=== PATIENT | female | born 1935 | race Caucasian/White ===

== ENCOUNTER 2020-03-07 12:44 | Emergency (ER) | payer MEDICARE, SELFPAY ==
--- NOTE | ~2020-03-07 | CT_ITS ---
EXAMINATION: CT brain wo con DATE: 03/07/2020 14:37 INDICATION: Syncope TECHNIQUE: Computed tomography (CT) of the head was performed without intravenous contrast. Sagittal and coronal reconstructions were performed. The mA was adjusted according to patient size. Iterative reconstruction technique was employed. The dose-length product was 605.33 mGy-cm. COMPARISON: head CT dated 05/02/2019 FINDINGS: No acute intracranial hemorrhage, acute infarction or abnormal extra axial fluid collection. There is mild scattered white matter hypoattenuation consistent with chronic small vessel ischemic disease. S ymmetric prominence of the sulci and subarachnoid spaces overlying the convexities consistent with mo derate age-appropriate diffuse cerebral volume loss. Ventricles are normal and symmetric. No mass/ma ss effect. The mastoids are hypopneumatized. The orbits are normal. Mild mucosal thickening in the ri ght sphenoid sinus. IMPRESSION: 1. No acute intracranial process. 2. Stable appearance of chronic age-related findings including moderate diffuse volume loss and mild scattered white matter hypoattenuation consistent with chronic small vessel ischemic disease. Reviewed, dictated and finalized at location A. IMPRESSION: 1. No acute intracranial process. 2. Stable appearance of chronic age-related findings including moderate diffuse volume loss and mild scattered white matter hypoattenuation consistent with ch ronic small vessel ischemic disease.
--- NOTE | ~2020-03-07 | XR_ITS ---
EXAMINATION: XR chest 2V DATE: 03/07/2020 13:23 INDICATION: Syncope TECHNIQUE: frontal and lateral views of the chest were obtained. COMPARISON: Chest radiograph dated 06/20/2019 FINDINGS: Right internal jugular central venous port catheter with distal tip at the midsuperior vena cava. Jeramie gs are hyperexpanded with increased lucency and architectural distortion in the upper lung zones cons istent with history of chronic obstructive pulmonary disease. There are several small scattered bilat eral calcified pulmonary nodules as well as calcified right paratracheal lymph nodes consistent with old granulomatous disease. Persistent mild linear and streaky opacities in the bilateral lower lung z ones consistent with atelectasis/scarring. No pleural effusion or pneumothorax. The cardiomediastinal silhouette is normal. Atherosclerotic aorta. Moderate thoracic spondylosis. IMPRESSION: 1. Hyperexpanded lungs consistent with COPD. 2. Unchanged mild atelectasis/scarring at the bilateral lower lung zones. Reviewed, dictated and finalized at location A.
--- NOTE | ~2020-03-07 | CT_ITS ---
EXAMINATION: CT abdomen pelvis wo con DATE: 03/07/2020 14:36 INDICATION: Lower abdominal pain TECHNIQUE: Computed tomography (CT) of the abdomen and pelvis was performed without intravenous contr ast. Automated exposure control and iterative reconstruction technique were employed. Exam dose: 193 .28 mGy-cm total exam DLP. COMPARISON: 02/01/2019 CT abdomen pelvis FINDINGS: There is an irregular approximately 7.5 x 11 mm mass in the posterior right lower lobe; cem anjana or metastatic lung cancer is likely. Consider PET/CT scan. Right lower lobe calcified pulmonary granulomas. Fat-containing foramen of Bochdalek hernia is noted bilaterally. Normal heart size. No pericardial or pleural effusion. Status post cholecystectomy. No intrahepatic or extrahepatic bile duct dilatation. Splenic size is no rmal. No pancreatic mass lesion or calcification or ductal dilatation. There is extensive calcification of the abdominal aorta, calcification of the right renal artery, eugenio cification at the origins of the celiac and superior mesenteric arteries, calcification of the iliac arteries. No abdominal aortic aneurysm is present. No intraperitoneal or retroperitoneal or pelvic ma ss lesion or adenopathy or ascites is noted. The urinary bladder is unremarkable. Status post hystere ctomy. There is a prominent of fecal material in the rectum and colon. No bowel obstruction, bowel wall thic kening, pneumatosis or intraperitoneal free air. There is diverticulosis of the colon; no CT evidence of diverticulitis. 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 No suspicious osteolytic or osteoblastic lesions are noted. IMPRESSION: Irregular approximately 7.5 mm x 11 mm soft tissue mass in right lower lobe; primary or m etastatic lung cancer is likely. Consider PET/CT imaging Status post cholecystectomy Status post hysterectomy Diverticulosis of the colon Jake Pacheco telephoned the report including the right lower lobe lung mass consistent with primary or me tastatic lung cancer to emergency room physician Dr. Tariq on 03/07/2020 at 1500 hours. Reviewed, dictated and finalized at Location [facility]. Reviewed, dictated and finalized at location B. IMPRESSION: Irregular approximately 7.5 mm x 11 mm soft tissue mass in right lo wer lobe; primary or metastatic lung cancer is likely. Consider PET/CT imaging Status post cholecystectomy Status post hysterectomy Diverticulosis of the colon Jake Pacheco telephoned the report including the right lower lobe lung mass consist ent with primary or metastatic lung cancer to emergency room physician Dr. Tariq on 03/07/2020 at 1500 hours.
[2020-03-07 12:55] VITALS: PULSE 75; RESP 18; TEMP 36.4; O2SAT 100
--- NOTE | 2020-03-07 12:57 | ECG_ITS ---
Measurements Intervals [place] Rate: 72 P: 66 IN: 171 QRS: 71 QRSD: 127 T: 49 QT: 404 QTc: 445 Interpretive Statements SINUS RHYTHM RIGHT BUNDLE BRANCH BLOCK BASELINE ARTIFACT- I, II, III, AVR, AVL, AVF ABNORMAL ECG Electronically Signed On 03-07-2020 13:05:19 CDT by Celso Martinez D.O.
[2020-03-07 13:38] VITALS: BP 132/72; PULSE 68; RESP 18; O2SAT 98
[2020-03-07 13:45] LABS: Basophils Percent Auto 0.3 % (0.2-1.2); Eosinophils Absolute Auto 0.1 K/mm3 (0-0.3); Hemoglobin 12.5 g/dL (12.0-15.0); Immature Granulocyte Absolute 0.01 K/mm3 (0.00-0.031); Immature Granulocyte Percent A 0.2 % (0-0.5); Lymphocytes Percent Auto 24.2 % (18.3-44.2); Mean Corpuscular HGB Conc 32.9 g/dl (32-36); Mean Corpuscular Hemoglobin 30.4 pg (26-34); Mean Corpuscular Volume 92.5 fl (80-100); Mean Platelet Volume 9.6 fl (7.4-10.4); Monocytes Absolute Auto 0.4 K/mm3 (0.1-0.6); Monocytes Percent Auto 6.6 % (2.6-8.5); Neutrophils Absolute Auto 4.2 K/mm3 (1.3-6.7); Neutrophils Percent Auto 67.7 % (45.5-73.1); Platelet Count Result 198 k/mm3 (150-375); Red Blood Count 4.11 M/mm3 (4.2-5.4); White Blood Count 6.2 K/mm3 (4.5-10.0)
[2020-03-07 13:58] LABS: Anion Gap 9.9 mmol/L (7-16); Blood Urea Nitrogen 25 mg/dL (7-17); Calcium 9.1 mg/dL (8.4-10.2); Carbon Dioxide 30 mmol/L (22-30); Chloride 102 mmol/L (98-107); Estimated CRCL calculation 36 ml/min; Estimated Glomerular Filt Rate > 60; Glucose 96 mg/dL (65-105); Potassium 3.9 mmol/L (3.4-5.0); Sodium 138 mmol/L (137-145)
--- NOTE | 2020-03-07 14:17 | ED.GENADULT ---
HPI - General Adult General Chief complaint: Unspecified Stated complaint: pain r/t cancer Time Seen by Provider: 03/07/20 13:44 Source: patient and family History of Present Illness HPI narrative: Patient is a 84 y/o female complaining of having dizziness and passing out this morning about 11:00 AM. Daughter states that patient's other daughter witnessed patient passing out and this lasted less than 1 minute. She was getting some coffee and sitting down when this happened. She was sitting and did not fall. There is no alleviating or exacerbating factor. She also had some intermittent abdominal pain, but abdominal pain has resolved. Related Data Home Medications Medication Instructions Recorded Confirmed aspirin 81 mg tablet,delayed 81 mg PO DAILY 09/15/19 release docusate sodium 100 mg capsule 100 mg PO DAILY 09/15/19 levetiracetam 750 mg tablet 750 mg PO Q12H 09/15/19 Allergies Allergy/AdvReac Type Severity Reaction Status Date / Time metoprolol Allergy Intermediate RASH & Verified 03/07/20 13:09 SWELLING Iodinated Contrast Media Allergy Unknown Anaphylactic Verified 03/07/20 13:09 Shock Penicillins Allergy Unknown Rash Verified 03/07/20 13:09 prednisone Allergy Unknown Unknown Verified 03/07/20 13:09 simvastatin Allergy Unknown Rash Verified 03/07/20 13:09 SHELLFISH Allergy Mild Anaphylactic Uncoded 03/07/20 13:09 Shock Contrast Media AdvReac Severe Anaphylactic Uncoded 03/07/20 13:09 Shock Review of Systems Constitutional: Constitutional: Denies chills, Denies fever(s), Denies headache(s) and Denies weakness Eyes: Eyes: Denies blurry vision ENT: Denies headache(s) and Denies neck pain Cardiovascular: Cardiovascular: Denies chest pain and Denies dyspnea Respiratory: Respiratory: Denies cough and Denies dyspnea Gastrointestinal: Gastrointestinal: Reports abdominal pain, Denies diarrhea, Denies nausea and Denies vomiting Genitourinary: Genitourinary: Denies hematuria and Denies dysuria Musculoskeletal: Musculoskeletal: Denies back pain and Denies neck pain Neurologic: Reports syncope, Denies headache(s) and Denies weakness [facility] Social History Social History Smoking status: Former smoker Smoking end date: 08/03/1964 Alcohol intake: never Substance use: never Substance use type: does not use Exam Const: General: no acute distress and well developed Orientation/consciousness: oriented to person, oriented to place, oriented to time and patient oriented x3 HENMT: Head: normocephalic Ears: external ears normal General nose exam: Normal external nose present Eyes: General: appearance normal, both eyes and all related structures Conjunctivae: conjunctivae normal Neck: Neck: normal visual inspection and full ROM Chest: Chest palpation & inspection: normal inspection of the chest and no tenderness Resp: Effort & Inspection: normal respiratory effort Auscultation: clear to auscultation bilaterally Cardio: Rate: regular rate Rhythm: regular rhythm GI: GI Palp: No abdominal tenderness and Yes Soft to palpation Skin: General skin exam: normal color and turgor normal Neuro: General: oriented to person, oriented to place, oriented to time and patient oriented x3 Cranial nerves: Yes CN's II-XII intact bilaterally Cognition (Neuro): normal cognition Speech: normal speech Motor exam (neuro): 5/5 motor strength present throughout Sensory Exam: normal sensation Coordination: [id number] test normal and [id number] test normal Extrem: General: normal to inspection, full ROM and no pedal edema Psych: Appearance: grossly normal Mental Status: mental status grossly normal Affect: normal affect Course Reevaluation(s) Reevaluation #1: Rechecked. Patient feels well. She has no complaint at this time. Informed patient and family about CT finding of lung mass, which may be malignant and certainly needs further evaluatio
[2020-03-07 14:45] LABS: Troponin I < 0.012 ng/mL (0.000-0.034)
[2020-03-07 15:01] VITALS: BP 130/39; PULSE 61; RESP 18; O2SAT 100
[2020-03-07 16:12] VITALS: BP 132/88; PULSE 70; RESP 18; O2SAT 98
== END 2020-03-07 16:13 | disposition home or self-care (01) ==
PROVIDERS: General Practice; Emergency Provider Emergency Medicine; PCP Family Medicine
DX: R55 Syncope and collapse (principal); I45.10 Unspecified right bundle-branch block
CPT/HCPCS: 36415; 70450; 71046; 74176; 80048; 84484; 85025; 93005; 99284

== ENCOUNTER 2020-05-31 14:09 | Emergency (ER) | payer MEDICARE, SELFPAY ==
[2020-05-31] VITALS (9 sets, daily range): BP systolic 105–141; BP diastolic 41–50; PULSE 60–73; RESP 12–22; TEMP 36.8; O2SAT 97–100
--- NOTE | ~2020-05-31 | CT_ITS ---
EXAMINATION: CT abdomen pelvis wo con DATE: 05/31/2020 17:39 INDICATION: Abdominal pain TECHNIQUE: Computed tomography (CT) of the abdomen and pelvis was performed without intravenous contr ast. The dose-length product was 221.01 mGy-cm. Automated exposure control and iterative reconstructi on technique were employed. COMPARISON: CT dated 03/07/2020 FINDINGS: There is a lobulated 1.4 cm mass right lower lobe which has increased in size compared with prior examination, consistent with bronchogenic carcinoma until proven otherwise. Heart size normal. No significant pleural or pericardial effusion. Status post cholecystectomy. The liver, spleen, pancreas, adrenal glands are unremarkable. There is nonobstructing right nephrolit hiasis. There is 1.3 cm exophytic left renal cyst. There is atherosclerosis. There is abnormal thicke keshawn of the sigmoid colon and rectum, consistent with colitis, likely infectious. Nonobstructive eugenio l gas pattern. There is mild surrounding inflammatory change adjacent to the sigmoid colon. No osteol ytic or osteoblastic lesions. No acute osseous abnormality. IMPRESSION: 1. Enlarging 14 mm right lower lobe nodule, consistent with bronchogenic carcinoma until proven other rushing. 2: Interval development of thickening of the sigmoid colon and rectum, consistent with colitis, most likely infectious. Consider C. difficile. Reviewed, dictated and finalized at location A. IMPRESSION: 1. Enlarging 14 mm right lower lobe nodule, consistent with bronchogenic carcin adam until proven otherwise. 2: Interval development of thickening of the sigmoid colon and rectum, consiste nt with colitis, most likely infectious. Consider C. difficile.
--- NOTE | 2020-05-31 14:14 | ECG_ITS ---
Measurements Intervals [place] Rate: 57 P: -13 DC: 194 QRS: -20 QRSD: 137 T: -9 QT: 437 QTc: 427 Interpretive Statements SINUS BRADYCARDIA RIGHT BUNDLE BRANCH BLOCK BASELINE WANDER- I, III, AVR, AVL ABNORMAL ECG Electronically Signed On 05-31-2020 19:29:25 CDT by Celso Martinez D.O.
[2020-05-31 15:37] LABS: Basophils Percent Auto 0.4 % (0.2-1.2); Eosinophils Absolute Auto 0.1 K/mm3 (0-0.3); Eosinophils Percent Auto 1.5 % (0-4.4); Hematocrit 41.5 % (37.0-47.0); Hemoglobin 13.7 g/dL (12.0-15.0); Immature Granulocyte Absolute 0.02 K/mm3 (0.00-0.031); Immature Granulocyte Percent A 0.2 % (0-0.5); Lymphocytes Absolute Auto 2.76 K/mm3 (0.9-3.2); Lymphocytes Percent Auto 30.3 % (18.3-44.2); Mean Corpuscular Hemoglobin 31.1 pg (26-34); Mean Corpuscular Volume 94.3 fl (80-100); Mean Platelet Volume 10.2 fl (7.4-10.4); Monocytes Absolute Auto 0.5 K/mm3 (0.1-0.6); Monocytes Percent Auto 5.3 % (2.6-8.5); Neutrophils Absolute Auto 5.7 K/mm3 (1.3-6.7); Neutrophils Percent Auto 62.3 % (45.5-73.1); Platelet Count Result 215 k/mm3 (150-375); Red Cell Distribution Width 12.2 % (11.5-14.5); White Blood Count 9.1 K/mm3 (4.5-10.0)
[2020-05-31 15:42] LABS: Alanine Aminotransferase 18 U/L (4-35); Albumin Level 4.4 g/dL (3.5-5.1); Alkaline Phosphatase 88 U/L (38-126); Anion Gap 10 mmol/L (8-16); Aspartate Amino Transferase 32 U/L (14-36); Bilirubin,Total 0.5 mg/dL (0.2-1.3); Blood Urea Nitrogen 20 mg/dL (7-17); Calcium 9.7 mg/dL (8.4-10.2); Carbon Dioxide 30 mmol/L (22-30); Chloride 100 mmol/L (98-107); Estimated CRCL calculation 30 ml/min; Estimated Glomerular Filt Rate 53; Glucose 109 mg/dL (65-105); Lipase 115 U/L (23-300); Potassium 4.1 mmol/L (3.4-5.0); Sodium 140 mmol/L (137-145)
--- NOTE | 2020-05-31 15:47 | ED.GENADULT ---
HPI - General Adult General Chief complaint: Seizure Stated complaint: TREMORS Time Seen by Provider: 05/31/20 14:32 Source: patient and family Limitations: physical limitation and other ([id number]) History of Present Illness HPI narrative: 84-year-old female History of ovarian cancer high blood pressure seizures and lung nodule that is being followed Had an episode in the bathroom at home today Sounds more like a presyncopal event than a seizure She had complained of some lower abdominal discomfort, she was urinating, and she possibly passed out trying to get up off the toilet but was assisted to the ground by family member There was some brief shaking which might have been tremor or myoclonus Her mental status rapidly returned to normal Currently she is effectively at baseline except for complaining of some lower abdominal pain which is less than it was prior to her using the bathroom There was no injury sustained Onset (ago): hour(s) Related Data Home Medications Medication Instructions Recorded Confirmed aspirin 81 mg tablet,delayed 81 mg PO DAILY 09/15/19 release docusate sodium 100 mg capsule 100 mg PO DAILY 09/15/19 levetiracetam 750 mg tablet 750 mg PO Q12H 09/15/19 Allergies Allergy/AdvReac Type Severity Reaction Status Date / Time metoprolol Allergy Intermediate RASH & Verified 05/31/20 15:58 SWELLING Iodinated Contrast Media Allergy Unknown Anaphylactic Verified 05/31/20 15:58 Shock Penicillins Allergy Unknown Rash Verified 05/31/20 15:58 prednisone Allergy Unknown Unknown Verified 05/31/20 15:58 simvastatin Allergy Unknown Rash Verified 05/31/20 15:58 SHELLFISH Allergy Mild Anaphylactic Uncoded 05/31/20 15:58 Shock Contrast Media AdvReac Severe Anaphylactic Uncoded 05/31/20 15:58 Shock Review of Systems Review of Systems: All systems reviewed & are unremarkable except as noted in HPI and below Constitutional: Constitutional: Denies chills, Reports fatigue, Denies fever(s), Denies headache(s) and Reports weakness Eyes: Eyes: Denies change in vision and Denies other visual disturbances ENT: Denies headache(s), Denies epistaxis, Denies nasal congestion and Denies sore throat Comments: Hearing problems Cardiovascular: Cardiovascular: Denies chest pain, Denies leg edema, Denies palpitations and Denies dyspnea Respiratory: Respiratory: Denies cough, Denies dyspnea and Denies wheezing Gastrointestinal: Gastrointestinal: Reports abdominal pain, Denies diarrhea, Denies nausea and Denies vomiting Genitourinary: Genitourinary: Denies hematuria, Denies urinary frequency and Denies dysuria Musculoskeletal: Musculoskeletal: Denies deformity, Denies arthralgias, Denies joint swelling, Denies muscle weakness and Denies numbness Integumentary/Breasts: Skin/Breast: Denies rash, Denies unusual bruising and Denies wounds Neurologic: Denies Abnormal speech present, Reports syncope, Denies headache(s), Denies focal weakness, Denies numbness and Denies weakness Psychiatric: Psychiatric: Reports no additional psychiatric complaints Endocrine: Endocrine: Denies fatigue and Denies palpitations Hematologic/Lymphatic: Hematologic/Lymphatic: Denies easy bleeding and Denies easy bruising Allergic/Immunologic: Allergic/Immunologic: Denies wheezing [facility] Social History Social History Smoking status: Former smoker Smoking end date: 08/03/1964 Alcohol intake: never Substance use: never Substance use type: does not use Exam Const: General: no acute distress, well developed and awake Nutritional Appearance: thin Orientation/consciousness: patient oriented x3 (alert) Other: Elderly, frail HENMT: Head: normocephalic and atraumatic Ears: external ears normal General nose exam: No nasal discharge present and no epistaxis Face and sinus: face symmetric Mouth: Yes moist mucous membranes Other: Atraumatic Eyes: Conjunctivae: conj
[2020-05-31 16:12] LABS: Add Urine Microscopic? YES; Appearance Urine Clear (Clear); Bacteria Urine Trace /hpf; Bilirubin Urine Negative (Negative); Blood Urine 1+ (Negative); Color Urine Yellow (Yellow); Glucose Urine UA Negative (Negative); Ketones Urine Negative (Negative); Leukocyte Esterase Ur Negative LEU/UL (Negative); Mucus Urine Rare /lpf; Nitrate Urine Negative (Negative); Protein Urine Negative (Negative); Specific Grav Ur 1.009 (1.001-1.035); Urobilinogen Urine Negative mg/dL (<2.0); WBC Urine 0-3 /hpf
[2020-05-31] MEDS: LACTATED RINGERS 1,000 ML 999 ML IV CONT (16:45)
[2020-05-31] MEDS: levETIRAcetam 1000MG/NACL100ML 1,000 MG/100 ML BAG 400 MG IVPB (16:47)
== END 2020-05-31 18:50 | disposition home or self-care (01) ==
PROVIDERS: Emergency Provider Emergency Medicine; PCP Family Medicine
DX: K52.9 Noninfective gastroenteritis and colitis, unspecified (principal); R91.1 Solitary pulmonary nodule; G40.909 Epilepsy, unspecified, not intractable, without status epilepticus; I10 Essential (primary) hypertension
CPT/HCPCS: 36415; 74176; 80053; 81001; 83690; 85025; 93005; 96361; 96365; 99284; J1953; J7120

== ENCOUNTER 2020-11-21 09:42 | Emergency (ER) | payer MEDICARE, SELFPAY ==
--- NOTE | ~2020-11-21 | CT_ITS ---
EXAMINATION: CT brain wo con DATE: 11/21/2020 11:36 INDICATION: Confusion. TECHNIQUE: Computed tomography (CT) of the head was performed without intravenous contrast. The mA wa s adjusted according to patient size. Iterative reconstruction technique was employed. The dose-lengt h product was 605.33 mGy-cm. COMPARISON: Head CT 03/07/2020 FINDINGS: There is no intracranial hemorrhage, acute infarction, or abnormal intracranial mass lesion . There are scattered areas of low attenuation in the cerebral white matter, which is within normal l imits for the patient's age. The ventricles are normal in size. There is mild mucosal thickening in t he ethmoid sinuses. The orbits are normal. The mastoid air cells are hypoplastic. IMPRESSION: 1. Normal aging brain. Reviewed, dictated and finalized at location B. IMPRESSION: 1. Normal aging brain.
--- NOTE | 2020-11-21 09:47 | ECG_ITS ---
Measurements Intervals [place] Rate: 93 P: 70 [place]: 218 QRS: 86 QRSD: 137 T: 44 QT: 360 QTc: 450 Interpretive Statements SINUS RHYTHM WITH FIRST DEGREE AV BLOCK RIGHT BUNDLE BRANCH BLOCK BASELINE ARTIFACT- I, II, III, AVR, AVL, AVF, V1-V6 ABNORMAL ECG Electronically Signed On 11-21-2020 10:00:46 CDT by Celso Martinez D.O.
[2020-11-21 09:48] VITALS: BP 160/71; PULSE 92; RESP 15; TEMP 36.9; O2SAT 99
[2020-11-21 10:06] LABS: Basophils Percent Auto 0.6 % (0.2-1.2); Eosinophils Absolute Auto 0.1 K/mm3 (0-0.3); Eosinophils Percent Auto 2.4 % (0-4.4); Hematocrit 40.8 % (37.0-47.0); Hemoglobin 13.4 g/dL (12.0-15.0); Immature Granulocyte Absolute 0.01 K/mm3 (0.00-0.031); Immature Granulocyte Percent A 0.2 % (0-0.5); Lymphocytes Absolute Auto 1.12 K/mm3 (0.9-3.2); Lymphocytes Percent Auto 22.5 % (18.3-44.2); Mean Corpuscular HGB Conc 32.8 g/dl (32-36); Mean Corpuscular Volume 94.4 fl (80-100); Mean Platelet Volume 9.1 fl (7.4-10.4); Monocytes Absolute Auto 0.3 K/mm3 (0.1-0.6); Monocytes Percent Auto 6.4 % (2.6-8.5); Neutrophils Absolute Auto 3.4 K/mm3 (1.3-6.7); Neutrophils Percent Auto 67.9 % (45.5-73.1); Platelet Count Result 224 k/mm3 (150-375); Red Blood Count 4.32 M/mm3 (4.2-5.4); Red Cell Distribution Width 12.3 % (11.5-14.5)
[2020-11-21 10:16] LABS: Alanine Aminotransferase 13 U/L (4-35); Alkaline Phosphatase 95 U/L (38-126); Anion Gap 8 mmol/L (8-16); Aspartate Amino Transferase 25 U/L (14-36); Bilirubin,Total 0.2 mg/dL (0.2-1.3); Blood Urea Nitrogen 23 mg/dL (7-17); Carbon Dioxide 28 mmol/L (22-30); Chloride 102 mmol/L (98-107); Estimated CRCL calculation 39 ml/min; Estimated Glomerular Filt Rate > 60; Glucose 107 mg/dL (65-105); Potassium 3.4 mmol/L (3.4-5.0); Sodium 138 mmol/L (137-145)
[2020-11-21 10:21] LABS: Add Urine Microscopic? YES; Appearance Urine Clear (Clear); Bilirubin Urine Negative (Negative); Blood Urine 1+ (Negative); Color Urine Straw (Yellow); Glucose Urine UA Negative (Negative); Ketones Urine Negative (Negative); Leukocyte Esterase Ur Negative LEU/UL (Negative); Mucus Urine Rare /lpf; Nitrate Urine Negative (Negative); Protein Urine Negative (Negative); RBC Urine 0-2 /hpf (0-2); Specific Grav Ur 1.009 (1.001-1.035); Urobilinogen Urine Negative mg/dL (<2.0); WBC Urine 0-3 /hpf
[2020-11-21 10:40] LABS: Troponin I < 0.012 ng/mL (0.000-0.034)
[2020-11-21 10:56] VITALS: BP 129/47; PULSE 76; RESP 18; O2SAT 97
[2020-11-21 10:58] LABS: Thyroid Stimulating Hormone 0.387 uIU/mL (0.465-4.680)
--- NOTE | 2020-11-21 11:35 | PC.NURSE ---
Pt in CT.
[2020-11-21 11:51] VITALS: BP 114/48; PULSE 64; RESP 14; O2SAT 95
--- NOTE | 2020-11-21 12:13 | ED.AMS ---
HPI - Altered Mental Status General Chief Complaint: Altered Mental Status Stated Complaint: disoriented, near syncopal since thursday Time Seen by Provider: 11/21/20 10:08 Source: patient and family Mode of arrival: ambulatory Limitations: no limitations History of Present Illness HPI narrative: 85-year-old female History of dementia Lives with 1 daughter but brought in today by her other daughter who does see her often They note about a 3-day history of of worsening of her mental status, with worse confusion than usual, possible hallucinations, has complained of being lightheaded and dizzy, no behavioral issues though Patient was in the office this morning and nurse practitioner recommended that she be evaluated for this in the ED Daughter states that UTIs have caused issues like this for her in the past Patient states that as far as she knows she feels fine, she denies a cough or shortness of breath although family says that she is occasionally complained of shortness of breath, everyone agrees that her appetite is good, she is moving her bowels, and she says she has no urinary frequency or dysuria Related Data Home Medications Medication Instructions Recorded Confirmed aspirin 81 mg tablet,delayed 81 mg PO DAILY 09/15/19 11/05/20 release docusate sodium 100 mg capsule 100 mg PO DAILY 09/15/19 11/05/20 levetiracetam 750 mg tablet 750 mg PO Q12H 09/15/19 11/05/20 Allergies Allergy/AdvReac Type Severity Reaction Status Date / Time metoprolol Allergy Intermediate RASH & Verified 11/21/20 10:02 SWELLING Iodinated Contrast Media Allergy Unknown Anaphylactic Verified 11/21/20 10:02 Shock Penicillins Allergy Unknown Rash Verified 11/21/20 10:02 prednisone Allergy Unknown Unknown Verified 11/21/20 10:02 simvastatin Allergy Unknown Rash Verified 11/21/20 10:02 SHELLFISH Allergy Mild Anaphylactic Uncoded 11/21/20 10:02 Shock Contrast Media AdvReac Severe Anaphylactic Uncoded 11/21/20 10:02 Shock Review of Systems Review of Systems: All systems reviewed & are unremarkable except as noted in HPI and below Constitutional: Constitutional: Reports no additional constitutional complaints, Denies chills, Reports fatigue, Denies fever(s), Denies headache(s) and Reports weakness Eyes: Eyes: Reports no additional eye complaints and Denies change in vision ENT: Reports dizziness, Denies headache(s) and Denies sore throat Cardiovascular: Cardiovascular: Denies chest pain and Denies dyspnea Respiratory: Respiratory: Denies cough and Denies dyspnea Gastrointestinal: Gastrointestinal: Denies abdominal pain, Denies bloating, Denies constipation, Denies diarrhea and Denies vomiting Genitourinary: Genitourinary: Denies urinary frequency, Denies nocturia and Denies dysuria Musculoskeletal: Musculoskeletal: Denies deformity, Denies arthralgias, Denies joint swelling and Denies numbness Integumentary/Breasts: Skin/Breast: Denies rash and Denies wounds Neurologic: Reports confusion Allergic/Immunologic: Allergic/Immunologic: Reports no additional allergic/immunologic complaints [facility] Past Medical History Medical History History of lung cancer Pelvic cancer Social History Social History (Updated 11/21/20 @ 09:27 by Lakisha Petersen CMA) Smoking status: Never smoker Second hand tobacco smoke exposure: No Smoking end date: 08/03/1964 Alcohol intake: never Substance use: never Substance use type: does not use Gender identity (if verbalized by the patient): Female Exam Const: General: cooperative, no acute distress and alert Other: Elderly, frail, pleasant HENMT: Head: normal to inspection, normocephalic, atraumatic, no contusions and no hematomas Ears: external ears normal General nose exam: no epistaxis Eyes: Conjunctivae: conjunctivae normal EOM: EOMs intact bilaterally Neck: Neck: normal visual inspection, supple an
[2020-11-21 12:58] VITALS: BP 125/65; PULSE 70; RESP 15; O2SAT 97
== END 2020-11-21 12:58 | disposition home or self-care (01) ==
PROVIDERS: Emergency Provider Emergency Medicine; PCP Family Medicine
DX: F03.90 Unspecified dementia, unspecified severity, without behavioral disturbance, psychotic disturbance, mood disturbance, and anxiety (principal); R41.82 Altered mental status, unspecified; Z85.118 Personal history of other malignant neoplasm of bronchus and lung; I44.0 Atrioventricular block, first degree; I45.10 Unspecified right bundle-branch block; Z79.82 Long term (current) use of aspirin
CPT/HCPCS: 36415; 51701; 70450; 80053; 81001; 84443; 84484; 85025; 93005; 99284